=== PATIENT | female | born 1995 | race Caucasian/White ===

== ENCOUNTER 2022-07-11 14:27 | Day surgery (SDC) | payer BC ==
[2022-07-11] MEDS ORDERED: Xylocaine 1% Vial 30 ML PF IJ ONE (14:28)
[2022-07-11] MEDS ORDERED: Decadron 4 MG INJ IV ONE (14:28)
--- NOTE | 2022-07-11 19:51 | XRAY ---
Indication: Right piriformis injection. Intraoperative fluoroscopy provided for 13 seconds. Single digital spot image submitted for interpretation demonstrates posterior needle tip projecting over the right piriformis muscle. Small amount of contrast injected for needle tip placement. Correlate with intraoperative findings/report. Incidental partially visualized right hip arthroplasty.
--- NOTE | 2022-07-12 19:54 | XRAY ---
13 seconds of fluoroscopy was used in surgery for a right piriformis muscle injection.
== END 2022-07-11 17:35 | disposition home or self-care (01) ==
LOC: SDC-PAIN 14:27
PROVIDERS: ATTEND Psychiatry & Neurology Pain Medicine
DX: M79.18 Myalgia, other site (principal); Z79.899 Other long term (current) drug therapy
CPT/HCPCS: 20552; 72170; 77002; 81025; J1100; J2001; Q9966

== ENCOUNTER 2023-04-17 11:12 | Day surgery (SDC) | payer BC ==
[2023-04-17] MEDS ORDERED: LIDOCAINE HCL 2% 100 MG/5 ML IJ ONE (11:13)
[2023-04-17] MEDS ORDERED: Depo-Medrol 40 MG/ML IM ONE (11:13)
[2023-04-17 11:27] LABS: HCG URINE TEST NEGATIVE (NEGATIVE)
[2023-04-17] MEDS ORDERED: DIPRIVAN 200 MG/20 ML IV ONE ×3 (12:48→13:24)
[2023-04-17] MEDS ORDERED: Versed 2 MG/2 ML Injection ONE (13:18)
[2023-04-17] MEDS ORDERED: Lactated Ringers 1,000 ML IV ONE (14:15)
--- NOTE | 2023-04-17 14:44 | XRAY ---
Indication: Bilateral L4-S1 MBB. Intraoperative fluoroscopy provided for 28 seconds. Single digital spot image submitted for interpretation demonstrates posterior needle tips projecting over the expected left and right L4-S1 nerve roots. Correlate with intraoperative findings
--- NOTE | 2023-04-17 16:46 | XRAY ---
28 seconds of fluoroscopy was used in surgery for a bilateral L4-S1 MBB.
== END 2023-04-17 13:55 | disposition home or self-care (01) ==
LOC: SDC-PAIN 11:12
PROVIDERS: ATTEND Psychiatry & Neurology Pain Medicine
DX: M47.816 Spondylosis without myelopathy or radiculopathy, lumbar region (principal); Z79.899 Other long term (current) drug therapy
CPT/HCPCS: 36410; 64493; 64494; 72020; 76942; 77002; 81025; J1030; J2250; J2704

== ENCOUNTER 2023-07-17 09:06 | Day surgery (SDC) | payer BC ==
[2023-07-17] MEDS ORDERED: Depo-Medrol 40 MG/ML IM ONE (09:07)
[2023-07-17] MEDS ORDERED: BUPIVACAINE 0.5% VIAL IJ ONE (09:07)
[2023-07-17 09:34] LABS: HCG URINE TEST NEGATIVE (NEGATIVE)
[2023-07-17] MEDS ORDERED: Versed 2 MG/2 ML Injection ONE ×2 (10:48→10:49)
[2023-07-17] MEDS ORDERED: DIPRIVAN 200 MG/20 ML IV ONE (10:48)
[2023-07-17] MEDS ORDERED: Lactated Ringers 1,000 ML IV ONE (11:22)
[2023-07-17] MEDS ORDERED: MORPHINE SULFATE 2 MG INJ ONE (11:30)
--- NOTE | 2023-07-17 12:07 | XRAY ---
Indication: Bilateral L4-S1 MBB. Intraoperative fluoroscopy provided for 16 seconds. Single digital spot image submitted for interpretation demonstrates posterior needle tips projecting over the expected left and right L4-S1 nerve roots. Correlate with intraoperative findings/report.
--- NOTE | 2023-07-17 12:27 | XRAY ---
16 seconds of fluoroscopy was used in surgery for a bilateral L4-S1 MBB.
== END 2023-07-17 11:59 | disposition home or self-care (01) ==
LOC: SDC-PAIN 09:06
PROVIDERS: ATTEND Psychiatry & Neurology Pain Medicine
DX: M47.816 Spondylosis without myelopathy or radiculopathy, lumbar region (principal)
CPT/HCPCS: 64493; 64494; 72020; 77002; 81025; J1030; J2250; J2270; J2704

== ENCOUNTER 2023-11-27 08:01 | Day surgery (SDC) | payer BC ==
[2023-11-27] MEDS ORDERED: Depo-Medrol 40 MG/ML IM ONE (08:02)
[2023-11-27] MEDS ORDERED: LIDOCAINE HCL 1% 50 MG/5 ML VL PF IJ ONE (08:02)
[2023-11-27] MEDS ORDERED: BUPIVACAINE 0.5% VIAL IJ ONE (08:02)
[2023-11-27 08:50] LABS: HCG URINE TEST NEGATIVE (NEGATIVE)
[2023-11-27] MEDS ORDERED: DIPRIVAN 200 MG/20 ML IV ONE (09:57)
[2023-11-27] MEDS ORDERED: Lactated Ringers 1,000 ML IV ONE (11:05)
--- NOTE | 2023-11-27 12:21 | XRAY ---
Indication: Right L4-S1 RFA. Intraoperative fluoroscopy provided for 23 seconds. 4 digital spot image submitted for interpretation demonstrates posterior needle tips projecting over the expected right L4-S1 nerve roots. Correlate with intraoperative findings/report.
--- NOTE | 2023-11-27 12:33 | XRAY ---
23 seconds of fluoroscopy was used in surgery for a right L4-S1 RFA.
== END 2023-11-27 10:30 | disposition home or self-care (01) ==
LOC: SDC-PAIN 08:01
PROVIDERS: ATTEND Psychiatry & Neurology Pain Medicine
DX: M47.816 Spondylosis without myelopathy or radiculopathy, lumbar region (principal)
CPT/HCPCS: 64635; 64636; 72100; 77002; 81025; J1010; J2001; J2704

== ENCOUNTER 2024-03-18 11:05 | Day surgery (SDC) | payer BC ==
[2024-03-18] MEDS ORDERED: Sodium Chloride 0.9(Preservative Free) 10 ML IJ ONE (11:06)
[2024-03-18] MEDS ORDERED: Depo-Medrol 40 MG/ML IM ONE (11:06)
[2024-03-18] MEDS ORDERED: LIDOCAINE HCL 1% 50 MG/5 ML VL PF IJ ONE (11:06)
[2024-03-18 11:43] LABS: HCG URINE TEST NEGATIVE (NEGATIVE)
[2024-03-18] MEDS ORDERED: DIPRIVAN 200 MG/20 ML IV ONE (12:38)
[2024-03-18] MEDS ORDERED: MORPHINE SULFATE 2 MG INJ ONE (12:58)
--- NOTE | 2024-03-18 13:40 | XRAY ---
Indication: L3-L4 interlaminar DANDRE. Intraoperative fluoroscopy provided for 18 seconds. 4 digital spot images submitted for interpretation demonstrates posterior needle tip projecting just posterior to L3-L4 interspace. Small amount of contrast injected for needle tip placement. Correlate with intraoperative findings/report.
--- NOTE | 2024-03-18 13:50 | XRAY ---
18 seconds of fluoroscopy was used in surgery for a L3-L4 interlaminar DANDRE.
[2024-03-18] MEDS ORDERED: Lactated Ringers 1,000 ML IV ONE (14:34)
== END 2024-03-18 13:00 ==
LOC: SDC-PAIN 11:05
PROVIDERS: ATTEND Psychiatry & Neurology Pain Medicine
DX: M54.16 Radiculopathy, lumbar region (principal)
CPT/HCPCS: 62323; 72100; 77003; 81025; J2001; J2270; J2704; Q9966

== ENCOUNTER 2024-09-30 12:55 | Day surgery (SDC) | payer BC ==
[2024-09-30] MEDS ORDERED: methylPREDNISolone acetate IM ONE (12:56)
[2024-09-30] MEDS ORDERED: LIDOCAINE HCL 1% AMPUL 5 ML IJ ONE (12:56)
[2024-09-30] MEDS ORDERED: BUPIVACAINE 0.5% VIAL IJ ONE (12:56)
[2024-09-30 13:34] LABS: HCG URINE TEST NEGATIVE (NEGATIVE)
[2024-09-30] MEDS ORDERED: propofoL IV ONE ×2 (14:30→14:45)
[2024-09-30] MEDS ORDERED: MORPHINE SULFATE 2 MG INJ ONE ×2 (15:05→15:28)
--- NOTE | 2024-09-30 16:34 | XRAY ---
Indication: Right SI joint and piriformis injection. Intraoperative fluoroscopy provided for 27 seconds. 2 digital spot image submitted for interpretation demonstrates posterior needle tip projecting over right piriformis. Second needle tip over right SI joint. Small amount of contrast injected for both needle tip placement. Correlate with intraoperative findings/report.
--- NOTE | 2024-09-30 17:08 | XRAY ---
27 seconds of fluoroscopy was used in surgery for a right piriformis and sacroiliac joint injection.
== END 2024-09-30 15:50 | disposition home or self-care (01) ==
LOC: SDC-PAIN 12:55
PROVIDERS: ATTEND Psychiatry & Neurology Pain Medicine
DX: M46.1 Sacroiliitis, not elsewhere classified (principal); M79.18 Myalgia, other site
CPT/HCPCS: 20553; 27096; 72170; 77002; 81025; J1010; J2270; J2704; Q9966

== ENCOUNTER 2025-03-11 10:14 | Day surgery (SDC) | payer BC ==
[2025-03-11] MEDS ORDERED: BUPIVACAINE 0.5% VIAL IJ ONE (10:15)
[2025-03-11] MEDS ORDERED: LIDOCAINE HCL 1% 50 MG/5 ML VL IJ ONE (10:15)
[2025-03-11] MEDS ORDERED: Depo-Medrol 40 MG/ML IM ONE (10:15)
[2025-03-11 10:44] LABS: HCG URINE TEST NEGATIVE (NEGATIVE)
[2025-03-11] MEDS ORDERED: Versed 2 MG/2 ML Injection ONE (12:21)
[2025-03-11] MEDS ORDERED: propofoL IV ONE (12:21)
[2025-03-11] MEDS ORDERED: SUBLIMAZE 100 MCG/2 ML ONE (12:27)
[2025-03-11] MEDS ORDERED: DILAUDID 0.5 MG/0.5 ML SYRINGE ONE (13:11)
[2025-03-11] MEDS ORDERED: Lactated Ringers 1,000 ML IV ONE (14:24)
--- NOTE | 2025-03-11 15:16 | XRAY ---
Indication: Left L4-S1 RFA. Intraoperative fluoroscopy provided for 33 seconds. 3 digital spot image submitted for interpretation demonstrates posterior needle tips projecting over expected left L4-S1 nerve roots. Correlate with intraoperative findings/report.
--- NOTE | 2025-03-11 22:12 | XRAY ---
33 seconds of fluoroscopy was used in surgery for a left L4-S1 RFA.
== END 2025-03-11 13:40 | disposition home or self-care (01) ==
LOC: SDC-PAIN 10:14
PROVIDERS: ATTEND Psychiatry & Neurology Pain Medicine
DX: M47.817 Spondylosis without myelopathy or radiculopathy, lumbosacral region (principal)